=== PATIENT | female | born 2000 | race Two or more races ===

== ENCOUNTER 2023-04-10 20:58 | Emergency (ER) | payer SELFPAY ==
[2023-04-10] VITALS (22 sets, daily range): BP systolic 141–180; BP diastolic 77–116; PULSE 76–112; RESP 15–25; TEMP 36.9–38; O2SAT 94–98; BMI 33.7
--- NOTE | 2023-04-10 21:19 | ED_ITS ---
HPI - General Adult General Chief complaint: Weakness Stated complaint: WEAK/DIZZY Time Seen by Provider: 04/10/23 20:59 Source: patient Mode of arrival: walk-in Limitations: no limitations History of Present Illness HPI narrative: This otherwise healthy 23-year-old female presents for evaluation of fevers, chills, diffuse body aches, headache, nausea and diarrhea. The symptoms started yesterday. She has had 2 recent covid exposures. She denies any chest pain or shortness of breath. She has no sore throat at this time. She used to Tylenol prior to arrival. She is vaccinated against COVID 19. She states she has not had any vomiting but has been nauseated all day and has had diarrhea all day. She has no specific abdominal pain. She states she feels dizzy when she changes positions but has not passed out. She denies any smoking. She denies the possibility of . She has no urinary symptoms or flank pain. Related Data Home Medications Medication Instructions Recorded Confirmed emtricitabine 200 mg-tenofovir 1 tab PO DAILY 04/10/23 04/10/23 disoproxil fumarate 300 mg tablet (Truvada) Allergies Allergy/AdvReac Type Severity Reaction Status Date / Time No Known Drug Allergies Allergy Verified 04/10/23 21:05 Review of Systems ROS Status of ROS 10 or more systems reviewed and unremark able except as noted in history and below [facility] Social History Smoking status: Never smoker Exam Narrative Exam Narrative: Nurses note and vital signs reviewed; Patient is febrile, tachycardic, blood pressure is elevated at 180/108, she is not hypoxic with pulse ox of 98 percent on room air General: Alert, nontoxic female resting currently on the stretcher, no respiratory distress, no active vomiting Skin: Warm, dry, no pallor noted. There is no rash noted. Head: Normocephalic, atraumatic Eye: Normal conjunctiva, no drainage, EOMI. PERRL, No photophobia Neck: Supple, no meningeal signs Ears, Nose, Mouth, and Throat: oral mucosa is dry, No posterior pharyngeal eryth bree or exudate. No peritonsillar abscess, no swelling of the tongue, uvula or pharyngeal soft tissues Cardiovascular: Regular Rate and [id number], No murmurs rubs or gallops, pulses are brisk and equal bilaterally Respiratory: Patient is in no distress, no accessory muscle use, lungs are clear to auscultation, no wheezing, rales or rhonchi Back: non-tender, no CVA tenderness bilaterally to percussion. GI: Normal bowel sounds, no tenderness to palpation, no masses appreciated. No rebound, guarding, or rigidity noted. Musculoskeletal: The patient has no evidence of calf tenderness, no pitting edema, symmetrical pulses noted bilaterally Neurological: A&O x4, normal speech Psychiatric: Cooperative Constitutional Vital Signs, click to edit/add: Last Vital Signs Temp 98.5 F 04/10/23 23:11 Pulse 88 04/10/23 23:00 Resp 15 04/10/23 23:00 BP 153/77 H 04/10/23 23:00 Pulse Ox 95 04/10/23 23:00 O2 Del Method Room Air 04/10/23 21:02 Course Vital Signs Vital signs: Vital Signs Temperature 100.4 F 04/10/23 21:02 Pulse Rate 112 H 04/10/23 21:02 Respiratory Rate 16 04/10/23 21:02 Blood Pressure 180/108 H 04/10/23 21:02 Pulse Oximetry 98 04/10/23 21:02 Oxygen Delivery Method Room Air 04/10/23 21:02 Temperature 98.5 F 04/10/23 23:11 Pulse Rate 88 04/10/23 23:00 Respiratory Rate 15 04/10/23 23:00 Blood Pressure 153/77 H 04/10/23 23:00 Pulse Oximetry 95 04/10/23 23:00 Oxygen Delivery Method Room Air 04/10/23 21:02 Medical Decision Making [facility] Narrative Medical decision making narrative: 23-year-old female with a history of HIV the presents for evaluation of fevers, chills, body aches with nausea and diarrhea for the past 2 days. She has taken Tylenol prior to arrival and was mildly febrile upon arrival. An IV was placed and she was given IV fluids, Zofran and Toradol. EKG done upon arrival is a sinus tachycardia at 104 bpm with normal axis and no acute changes. She was negative for COVID 19 and influenza. Urinalysis was negative for infection. Her white blood count was mildly elevated at 13. Hemoglobin is stable. Urine is negative. She was not . He did have elevated ALT and AST and her total bilirubin was 3.5. She does not have any right upper quadrant tenderness but in light of her history of HIV and fever with elevated bilirubin I ordered a CT scan with IV contrast. CT scan shows hepatomegaly but is otherwise normal. Chest x-ray was also negative for acute findings. Respiratory panel was negative. On reevaluation the patient is feeling better and tolerating clear liquids. Her vital signs have been stable. She feels comfortable being discharged home. She was given a copy of her CT scan and chest x-ray results to share with her family physician. I encouraged her to follow up closely due to the elevated bilirubin on her comprehensive metabolic profile. She will be discharged home with a prescription for Zofran and Bentyl with recommendation for clear liquid diet, slow advancement to bland diet prior to resuming normal diet. Lab Data Labs: Lab Results 04/10/23 04/10/23 04/10/23 Range/Units 21:10 21:30 21:30 WBC 13.0 H (4.0-11.0) 10^3/uL RBC 4.61 (4.20-5.40) 10^6/uL Hgb 14.0 (12.0-16.0) g/dL Hct 41.5 (36.0-48.0) % MCV 90.0 (81.0-99.0) fL MCH 30.4 (26.7-34.0) pg MCHC 33.7 (29.9-35.2) g/dL RDW 11.8 (11.0-15.0) % Plt Count 304 (150-450) 10^3/uL MPV 10.2 (9.5-13.5) fL Neut % (Auto) 81.4 H (43.0-75.0) % Lymph % (Auto) 11.8 L (20.5-60.0) % Green % (Auto) 5.9 (1.7-12.0) % Eos % (Auto) 0.4 L (0.9-7.0) % Baso % (Auto) 0.1 L (0.2-2.0) % Neut # (Auto) 10.6 H (1.4-6.5) 10^3/uL Lymph # (Auto) 1.5 (1.2-3.8) 10^3/uL Green # (Auto) 0.8 (0.3-0.8) 10^3/uL Eos # (Auto) 0.1 (0.0-0.7) 10^3/uL Baso # (Auto) 0.0 (0.0-0.1) 10^3/uL Abs Immat Gran (auto) 0.05 H (0.00-0.03) 10^3/uL Imm/Tot Granulo (auto) 0.4 (0.0-0.5) % Sodium 135 L (136-145) mmol/L Potassium 3.6 (3.5-5.1) mmol/L Chloride 99 (98-107) mmol/L Carbon Dioxide 23.8 (21.0-32.0) mmol/L Anion Gap 15.8 BUN 8.0 (7.0-18.0) mg/dL Creatinine 0.52 L (0.55-1.02) mg/dL Est GFR ( Amer) >60 (>=60) Est GFR (Non-Af Amer) >60 (>=60) BUN/Creatinine Ratio 15.4 Glucose 114 H (74-106) mg/dL Calcium 8.9 (8.5-10.1) mg/dL Total Bilirubin 3.5 H (0.2-1.0) mg/dL AST 74 H (15-37) U/L ALT 121 H (14-59) U/L Alkaline Phosphatase 68 (46-116) U/L Total Protein 7.8 (6.4-8.2) g/dL Albumin 4.0 (3.4-5.0) g/dL Globulin 3.8 g/dL Albumin/Globulin Ratio 1.1 Urine Color (YELLOW) Urine Clarity (CLEAR) Urine pH (5.0-9.0) Ur Specific [place] (1.005-1.025) Urine Protein (NEG/TRACE) mg/dL Urine Glucose (UA) (NEGATIVE) mg/dL Urine Ketones (NEGATIVE) mg/dL Urine Occult Blood (NEGATIVE) Urine Nitrite (NEGATIVE) Urine Bilirubin (NEGATIVE) Urine Urobilinogen (0.2-1.0) EU/dL Ur Leukocyte Esterase (NEGATIVE) Urine RBC (0-2) #/HPF Urine WBC (NONE SEEN) #/HPF Ur Squamous Epith Cells (NONE/RARE) #/LPF Urine Crystals (None Seen) #/HPF Urine Bacteria (NONE SEEN) #/HPF Urine Casts (NONE SEEN) #/LPF Urine Mucus (NONE SEEN) Urine HCG, Qual (NEGATIVE) Adenovirus (PCR) Not detected (NOT DETECTE) C. pneumoniae DNA (PCR) Not detected (NOT DETECTE) Coronavirus Type OC43 Not detected (NOT DETECTE) Coronavirus Type HKU1 Not detected (NOT DETECTE) Coronavirus Type 229E Not detected (NOT DETECTE) SARS-CoV-2 (PCR) Negative Not detected (NEGATIVE) Coronavirus Type NL63 Not detected (NOT DETECTE) Human Metapneumovir PCR Not detected (NOT DETECTE) Influenza Type A Ag Negative Influenza Type B Ag Negative M. pneumoniae (PCR) Not detected (NOT DETECTE) Parainfluenza PCR Not detected (NOT DETECTE) Parainfluenza 2 (PCR) Not detected (NOT DETECTE) Parainfluenza 3 (PCR) Not detected (NOT DETECTE) Parainfluenza 4 (PCR) Not detected (NOT DETECTE) RSV (RT-PCR) Not detected (NOT DETECTE) Entero/Rhino (PCR) Not detected (NOT DETECTE) Bordetella pertussis (PCR) Not detected (NOT DETECTE) B parapertussis DNA PCR Not detected (NOT DETECTE) Influenza Type A (PCR) Not detected (NOT DETECTE) Influenza Type B (PCR) Not detected (NOT DETECTE) 04/10/23 Range/Units 21:40 WBC (4.0-11.0) 10^3/uL RBC (4.20-5.40) 10^6/uL Hgb (12.0-16.0) g/dL Hct (36.0-48.0) % MCV (81.0-99.0) fL MCH (26.7-34.0) pg MCHC (29.9-35.2) g/dL RDW (11.0-15.0) % Plt Count (150-450) 10^3/uL MPV (9.5-13.5) fL Neut % (Auto) (43.0-75.0) % Lymph % (Auto) (20.5-60.0) % Green % (Auto) (1.7-12.0) % Eos % (Auto) (0.9-7.0) % Baso % (Auto) (0.2-2.0) % Neut # (Auto) (1.4-6.5) 10^3/uL Lymph # (Auto) (1.2-3.8) 10^3/uL Green # (Auto) (0.3-0.8) 10^3/uL Eos # (Auto) (0.0-0.7) 10^3/uL Baso # (Auto) (0.0-0.1) 10^3/uL Abs Immat Gran (auto) (0.00-0.03) 10^3/uL Imm/Tot Granulo (auto) (0.0-0.5) % Sodium (136-145) mmol/L Potassium (3.5-5.1) mmol/L Chloride (98-107) mmol/L Carbon Dioxide (21.0-32.0) mmol/L Anion Gap BUN (7.0-18.0) mg/dL Creatinine (0.55-1.02) mg/dL Est GFR ( Amer) (>=60) Est GFR (Non-Af Amer) (>=60) BUN/Creatinine Ratio Glucose (74-106) mg/dL Calcium (8.5-10.1) mg/dL Total Bilirubin (0.2-1.0) mg/dL AST (15-37) U/L ALT (14-59) U/L Alkaline Phosphatase (46-116) U/L Total Protein (6.4-8.2) g/dL Albumin (3.4-5.0) g/dL Globulin g/dL Albumin/Globulin Ratio Urine Color Lt. yellow (YELLOW) Urine Clarity Clear (CLEAR) Urine pH 6.5 (5.0-9.0) Ur Specific [place] <=1.005 A (1.005-1.025) Urine Protein Negative (NEG/TRACE) mg/dL Urine Glucose (UA) Negative (NEGATIVE) mg/dL Urine Ketones Negative (NEGATIVE) mg/dL Urine Occult Blood Small A (NEGATIVE) Urine Nitrite Negative (NEGATIVE) Urine Bilirubin Negative (NEGATIVE) Urine Urobilinogen 1.0 (0.2-1.0) EU/dL Ur Leukocyte Esterase Negative (NEGATIVE) Urine RBC 5-10 A (0-2) #/HPF Urine WBC 0-2 A (NONE SEEN) #/HPF Ur Squamous Epith Cells Moderate A (NONE/RARE) #/LPF Urine Crystals None seen (None Seen) #/HPF Urine Bacteria Trace A (NONE SEEN) #/HPF Urine Casts None seen (NONE SEEN) #/LPF Urine Mucus None seen (NONE SEEN) Urine HCG, Qual Negative (NEGATIVE) Adenovirus (PCR) (NOT DETECTE) C. pneumoniae DNA (PCR) (NOT DETECTE) Coronavirus Type OC43 (NOT DETECTE) Coronavirus Type HKU1 (NOT DETECTE) Coronavirus Type 229E (NOT DETECTE) SARS-CoV-2 (PCR) (NEGATIVE) Coronavirus Type NL63 (NOT DETECTE) Human Metapneumovir PCR (NOT DETECTE) Influenza Type A Ag Influenza Type B Ag M. pneumoniae (PCR) (NOT DETECTE) Parainfluenza PCR (NOT DETECTE) Parainfluenza 2 (PCR) (NOT DETECTE) Parainfluenza 3 (PCR) (NOT DETECTE) Parainfluenza 4 (PCR) (NOT DETECTE) RSV (RT-PCR) (NOT DETECTE) Entero/Rhino (PCR) (NOT DETECTE) Bordetella pertussis (PCR) (NOT DETECTE) B parapertussis DNA PCR (NOT DETECTE) Influenza Type A (PCR) (NOT DETECTE) Influenza Type B (PCR) (NOT DETECTE) ECG Data Attestation: I personally reviewed and interpreted this ECG as follows: (Sinus tachycardia at 104 beats for minute, normal axis, normal intervals, no acute ST segment elevation or T-wave inversion) Discharge Plan Discharge Chief Complaint: Weakness Clinical Impression: Acute viral syndrome, Elevated liver function tests, Febrile illness, acute Patient Disposition: Home, Self-Care Time of Disposition Decision: 23:52 Condition: Good Prescriptions / Home Meds: No Action emtricitabine-tenofovir (TDF) [Truvada] 200-300 mg tablet 1 tab PO DAILY Instructions: Fever in Adults (ED), Viral Syndrome (ED) Stand Alone Forms: Portal Instructions Referrals: Physician,Non-Staff, MD [Primary Care Provider] - 1 week
[2023-04-10 21:28] LABS: Basophils Percent Auto 0.1 % (0.2-2.0); Eosinophils Absolute Auto 0.1 10^3/uL (0.0-0.7); Eosinophils Percent Auto 0.4 % (0.9-7.0); Hematocrit 41.5 % (36.0-48.0); Immature Granulocytes Abs Auto 0.05 10^3/uL (0.00-0.03); Immature Granulocytes Pct Auto 0.4 % (0.0-0.5); Lymphocytes Absolute Auto 1.5 10^3/uL (1.2-3.8); Lymphocytes Percent Auto 11.8 % (20.5-60.0); Mean Corpuscular HGB Conc 33.7 g/dL (29.9-35.2); Mean Corpuscular Hemoglobin 30.4 pg (26.7-34.0); Mean Platelet Volume 10.2 fL (9.5-13.5); Monocytes Absolute Auto 0.8 10^3/uL (0.3-0.8); Monocytes Percent Auto 5.9 % (1.7-12.0); Neutrophils Absolute Auto 10.6 10^3/uL (1.4-6.5); Neutrophils Percent Auto 81.4 % (43.0-75.0); Platelet Count 304 10^3/uL (150-450); Red Blood Count 4.61 10^6/uL (4.20-5.40); Red Cell Distribution Width 11.8 % (11.0-15.0)
[2023-04-10] MEDS: KETOROLAC TROMETHAMINE 30 MG/ML VIAL IVP (21:28)
[2023-04-10] MEDS: ONDANSETRON PF 4 MG/2 ML VIAL IV (21:28)
[2023-04-10] MEDS: 0.9 % SODIUM CHLORIDE 1,000 ML 1000 ML IV (21:28)
[2023-04-10 21:42] LABS: Alanine Aminotransferase 121 U/L (14-59); Albumin Globulin Ratio 1.1; Alkaline Phosphatase 68 U/L (46-116); Anion Gap 15.8; Aspartate Amino Transferase 74 U/L (15-37); BUN Creatinine Ratio 15.4; Bilirubin Total 3.5 mg/dL (0.2-1.0); Calcium 8.9 mg/dL (8.5-10.1); Carbon Dioxide 23.8 mmol/L (21.0-32.0); Chloride 99 mmol/L (98-107); Estimated GFR (African America >60 (>=60); Estimated GFR (Non-African Ame >60 (>=60); Globulin 3.8 g/dL; Glucose 114 mg/dL (74-106); Potassium 3.6 mmol/L (3.5-5.1); Sodium 135 mmol/L (136-145); Total Protein 7.8 g/dL (6.4-8.2)
[2023-04-10 21:49] LABS: Influenza Virus A Antigen Negative; Influenza Virus B Antigen Negative
[2023-04-10 21:50] LABS: Bilirubin Urine NEGATIVE (NEGATIVE); Blood Urine SMALL (NEGATIVE); Clarity Urine CLEAR (CLEAR); Color Urine LT. YELLOW (YELLOW); Glucose Urine UA NEGATIVE (NEGATIVE); Ketones Urine NEGATIVE (NEGATIVE); Leukocyte Esterase Urine NEGATIVE (NEGATIVE); Nitrite Urine NEGATIVE (NEGATIVE); Protein Urine NEGATIVE (NEG/TRACE); Specific Gravity Urine <=1.005 (1.005-1.025); pH Urine 6.5 (5.0-9.0)
[2023-04-10 21:50] LABS: Internal Control Within Normal Limits; SARS-CoV-2 Ag NEGATIVE (NEGATIVE)
[2023-04-10 21:52] LABS: HCG Qualitative Urine* NEGATIVE (NEGATIVE)
[2023-04-10 21:59] LABS: Bacteria Urine TRACE #/HPF (NONE SEEN); Cast Seen? NONE SEEN #/LPF (NONE SEEN); Crystals Seen? None Seen #/HPF (None Seen); Mucus Urine NONE SEEN (NONE SEEN); Squamous Epithelial Cell Urine MODERATE #/LPF (NONE/RARE); WBC Urine 0-2 #/HPF (NONE SEEN)
--- NOTE | 2023-04-10 22:07 | XR_ITS ---
The [address] [address] Patient Name: MONO GARIBAY MRN: [id number] date: 2000 Sex: F Assigned Patient Location: ER Current Patient Location: ER Accession/Order Number: [id number] Exam Date: 04/10/2023 22:40 Report Date: 04/10/2023 23:06 At the request of: KVNG MARKER Procedure: XR chest 2V EXAM: XR chest 2V HISTORY: fever COMPARISON: None. TECHNIQUE: 2 views of the chest were obtained. FINDINGS: The cardiac silhouette is normal in size. The lungs are clear. There is no significant pneumothorax or pleural effusion. No acute osseous abnormality is seen. XR/XR chest 2V IMPRESSION: 1. No acute cardiopulmonary abnormality. Electronically authenticated by: Darci NOGUEIRA Date: 04/10/2023 23:06
--- NOTE | 2023-04-10 22:16 | CT_ITS ---
[address] [address] Patient Name: OMNO GARIBAY MRN: [id number] date: 2000 Sex: F Assigned Patient Location: ER Current Patient Location: ER Accession/Order Number: [id number] Exam Date: 04/10/2023 22:40 Report Date: 04/10/2023 23:11 At the request of: KVNG MARKER Procedure: CT abdomen pelvis w con EXAM: CT abdomen pelvis w con HISTORY: abd pain, diarrhea, elevated bilirubin COMPARISON: None. TECHNIQUE: Axial CT images through the abdomen and pelvis were obtained after the intravenous administration of 100 mL Omnipaque 300 contrast. Coronal and sagittal reformats were obtained. Dose reduction techniques were achieved by using automated exposure control and/or adjustment of mA and/or kV according to patient size and/or use of iterative reconstruction technique. FINDINGS: The visualized portions of the lung bases are clear. Abdomen: The liver and spleen enhance homogeneously without focal lesion. There is no intra or extrahepatic biliary duct dilatation. The gallbladder is unremarkable. There is hepatic steatosis. The liver is enlarged measuring up to 20.2 cm at the right midclavicular line. The pancreas, adrenal glands, kidneys, and bowel loops, including the appendix, are unremarkable. There is no mesenteric or retroperitoneal lymphadenopathy. Pelvis: The bladder demonstrates wall thickening. The rectum is unremarkable. There is no iliac or inguinal lymphadenopathy. The uterus is present. The left ovary appears within normal limits by CT. There is a suspected right ovarian follicle measuring up to 1.9 x 1.9 cm (series 3, image 118). Bone windows show no aggressive osseous lesions. There is nonspecific sclerosis about the sacroiliac joints. CT/CT abdomen pelvis w con IMPRESSION: 1. No specific etiology identified to explain the patient's abdominal pain. 2. Hepatomegaly and hepatic steatosis. 3. Normal appendix. 4. Urinary bladder wall thickening. Please correlate with urinalysis for infection. 5. Suspected right ovarian follicle measuring up to 1.9 cm. Electronically authenticated by: Darci NOGUEIRA Date: 04/10/2023 23:11
[2023-04-10 22:52] LABS: Adenovirus NOT DETECTED (NOT DETECTE); Bordetella parapertussis NOT DETECTED (NOT DETECTE); Coronavirus 229E NOT DETECTED (NOT DETECTE); Coronavirus HKU1 NOT DETECTED (NOT DETECTE); Coronavirus NL63 NOT DETECTED (NOT DETECTE); Coronavirus OC43 NOT DETECTED (NOT DETECTE); Human Metapneumovirus NOT DETECTED (NOT DETECTE); Human Rhinovirus/Enterovirus NOT DETECTED (NOT DETECTE); Influenza A NOT DETECTED (NOT DETECTE); Influenza B NOT DETECTED (NOT DETECTE); Mycoplasma pneumoniae NOT DETECTED (NOT DETECTE); Parainfluenza Virus 1 NOT DETECTED (NOT DETECTE); Parainfluenza Virus 2 NOT DETECTED (NOT DETECTE); Parainfluenza Virus 3 NOT DETECTED (NOT DETECTE); Parainfluenza Virus 4 NOT DETECTED (NOT DETECTE); Respiratory Syncytial Virus NOT DETECTED (NOT DETECTE); SARS-CoV-2 NOT DETECTED (NOT DETECTE)
--- NOTE | 2023-04-10 23:58 | ECG_ITS ---
The [facility] Test Date: 2023-04-10 Pat Name: MONO GARIBAY Department: Room: - Gender: Female Health And Safety Consultant: : 2000 Requested By: [id number] Order Number: [id number] Reading MD: BEV MCDERMOTT Measurements Intervals [place] Rate: 104 P: 40 CO: 124 QRS: 68 QRSD: 88 T: 37 QT: 354 QTc: 414 Interpretive Statements 1120 Sinus tachycardia 9140 abnormal rhythm ECG No previous ECG available for comparison Electronically Signed On 04-11-2023 7:14:12 EST by BEV MCDERMOTT
[2023-04-11 15:09] LABS: SARS-CoV-2 NAA NOT DETECTED (NOT DETECTE)
== END 2023-04-11 00:02 | disposition home or self-care (01) ==
PROVIDERS: Emergency Provider Emergency Medicine
DX: R50.9 Fever, unspecified (principal); B34.9 Viral infection, unspecified; R79.89 Other specified abnormal findings of blood chemistry; R42 Dizziness and giddiness; Z21 Asymptomatic human immunodeficiency virus [HIV] infection status; R16.0 Hepatomegaly, not elsewhere classified
CPT/HCPCS: 0202U; 36415; 71046; 74177; 80053; 81001; 84703; 85025; 87635; 87804; 87811; 93005; 96361; 96374; 96375; 99285; Q9967

== ENCOUNTER 2023-12-29 21:34 | Emergency (ER) | payer OTHER, SELFPAY ==
[2023-12-29 21:41] VITALS: BP 170/110; PULSE 81; TEMP 36.8; O2SAT 97; BMI 38.4
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
--- NOTE | 2023-12-29 22:11 | ED.GENADUL1 ---
HPI HPI - General Adult General Stated complaint: Eye Pain Time Seen by Provider: 12/29/23 21:42 Source: patient Mode of arrival: walk-in History of Present Illness HPI narrative: 23-year-old female to the emergency department chief complaint of small red spot on her eye. She reports yesterday noticed that she had a small subconjunctival hemorrhage. No vision changes. No injury. No eye pain, foreign body sensation. She reports that she believes it started after she sneezed. No blood thinner use. Otherwise at her baseline health. Related Data Home Medications ?Medication ?Instructions ?Recorded ?Confirmed emtricitabine 200 mg-tenofovir 1 tab PO DAILY 04/10/23 12/29/23 disoproxil fumarate 300 mg tablet (Truvada) Allergies Allergy/AdvReac Type Severity Reaction Status Date / Time No Known Drug Allergies Allergy Verified 12/29/23 21:40 Opioid HPI Opioid Management Most Recent Opioid Data: No Data to Display Review of Systems ROS Status of ROS 10 or more systems reviewed and unremarkable except as noted in history and below PFSH PFS Social History Smoking status: Never smoker Exam Narrative Exam Narrative: VITALS: I have reviewed the triage vital signs. GENERAL: Well developed, well appearing adult in no acute distress. NEURO: Alert and oriented. Moves all extremities. Face is symmetric and expressive. EYES: PERRL. No scleral icterus or conjunctival injection. No discharge. Small subconjunctival hemorrhage of the left eye at 7:00. HENT: Normocephalic, atraumatic. Hearing is grossly intact. Nares grossly patent and without discharge. Mucous membranes moist. NECK: No JVD. Patient moves neck without restriction. EXTREMITIES: Symmetric muscle bulk. No joint swelling. No clubbing, cyanosis, or deformity. SKIN: Warm and dry. Normal turgor. No rash or lesions appreciated. PSYCH: Mood, affect, and interaction is appropriate to the setting. Constitutional Vital Signs, click to edit/add: Last Vital Signs Temp 98.3 F 12/29/23 21:41 Pulse 81 12/29/23 21:41 Resp 16 12/29/23 21:41 BP 170/110 H 12/29/23 21:41 Pulse Ox 97 12/29/23 21:41 O2 Del Method Room Air 12/29/23 21:41 Course Vital Signs Vital signs: Vital Signs Temperature 98.3 F 12/29/23 21:41 Pulse Rate 81 12/29/23 21:41 Respiratory Rate 16 12/29/23 21:41 Blood Pressure 170/110 H 12/29/23 21:41 Pulse Oximetry 97 12/29/23 21:41 Oxygen Delivery Method Room Air 12/29/23 21:41 Temperature 98.3 F 12/29/23 21:41 Pulse Rate 81 12/29/23 21:41 Respiratory Rate 16 12/29/23 21:41 Blood Pressure 170/110 H 12/29/23 21:41 Pulse Oximetry 97 12/29/23 21:41 Oxygen Delivery Method Room Air 12/29/23 21:41 Medical Decision Making MDM Narrative Medical decision making narrative: 23-year-old female asymptomatic with subconjunctival hemorrhage. Hypertensive, otherwise stable vitals. Education given on subconjunctival hemorrhage. Return precautions were discussed. We also discussed her elevated blood pressure. She reports she has a history of this and was supposed to follow-up with her PCP but failed to do so. I recommended daily blood pressure log, following up with her PCP in the next week to ensure that her subconjunctival hemorrhages resolving and on her blood pressure. She agrees with this plan. Return precautions were discussed. All questions were answered. The patient was discharged home. Discharge Plan Discharge Stand Alone Forms: Work/School Release, Portal Instructions Clinical Impression: Hypertension, Conjunctival hemorrhage Patient Disposition: Home, Self-Care Time of Disposition Decision: 22:08 Condition: Good Mode of Transportation: Private Vehicle Prescriptions / Home Meds: No Action emtricitabine-tenofovir (TDF) [Truvada] 200-300 mg tablet 1 tab PO DAILY Print Language: Gabonese Instructions: Chronic Hypertension (ED), Eye Pain (ED) Additional Instructions: Call the office of your primary care doctor to arrange for follow-up within the above-stated timeframe. Your ED visit was focused on your acute issue and does not replace primary care. You should review your labs, imaging, and diagnoses from this ED visit with your primary care physician. There may be non-emergent/ incidental findings that need further evaluation. You should review your vital signs including blood pressure with your PCP. If you were prescribed medications you should discuss possible side-effects and drug interactions with your pharmacist. Call 911 or go to the nearest Emergency Department if you develop any new or worsening symptoms. Keep daily blood pressure log. Follow-up with your doctor in the next week for evaluation of your blood pressure. Subconjunctival hemorrhage will resolve over the next week to 2 weeks. Return to the ED if it begins affecting her vision. Referrals: [facility] [Primary Care Provider] - 1 week
== END 2023-12-29 22:32 | disposition home or self-care (01) ==
PROVIDERS: Emergency Provider Student in an Organized Health Care Education/Training Program
DX: H11.32 Conjunctival hemorrhage, left eye (principal); I10 Essential (primary) hypertension
CPT/HCPCS: 99281

== ENCOUNTER 2025-04-15 18:25 | Emergency (ER) | payer SELFPAY ==
[2025-04-15 18:31] VITALS: BP 176/93; PULSE 82; TEMP 37.2; O2SAT 97; BMI 39.3
--- NOTE | 2025-04-15 18:55 | ECG_ITS ---
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
--- NOTE | 2025-04-15 18:55 | XR_ITS ---
[facility] [place] [id number] Patient Name: MONO GARIBAY MRN: [id number] date: 2000 Sex: F Assigned Patient Location: ER Current Patient Location: ED.MAIN Accession/Order Number: [id number] Exam Date: 04/15/2025 19:02 Report Date: 04/15/2025 19:25 At the request of: DELROY WHEELER Procedure: XR chest 2V PA AND LATERAL CHEST: CLINICAL HISTORY: CP COMPARISON: 04/10/2023 FINDINGS: Unremarkable cardiomediastinal silhouette. Lungs are clear. No effusion or pneumothorax. XR/XR chest 2V IMPRESSION: NO ACUTE CARDIOPULMONARY ABNORMALITY. Impression dictated by: Abraham Mcdaniel M.D. 04/15/2025 7:25 PM Dictation Location: [place] [address] Electronically authenticated by: [id number] Y Date: 04/15/2025 19:25
--- NOTE | 2025-04-15 18:56 | ED.GENADUL1 ---
HPI HPI - General Adult General Chief complaint: Chest Pain Stated complaint: CHEST PAIN Time Seen by Provider: 04/15/25 18:52 Source: patient Mode of arrival: walk-in History of Present Illness HPI narrative: 25 year old female presents to the ED for pain across her chest. Onset was approx one week ago. States she had a cough, URI symptoms last week. Denies fever, chills, dizziness, SOB. She saw her pcp today and was placed on medication for hypertension and DM. Related Data Allergies Allergy/AdvReac Type Severity Reaction Status Date / Time No Known Drug Allergies Allergy Verified 04/15/25 18:31 Opioid HPI Opioid Management Most Recent Opioid Data: Last Pain Scale 7 Today, 18:31 Review of Systems ROS Constitutional Denies: fever or chills Ears, nose, mouth, and throat Denies: throat pain Cardiovascular Reports: chest pain Respiratory Reports: cough; Denies: shortness of breath Gastrointestinal Denies: abdominal pain, nausea, vomiting or diarrhea Musculoskeletal Denies: back pain Integumentary/Breast Denies: rash Neurological Denies: headache or dizziness PFSH PFSH Social History Smoking status: Never smoker Little interest or pleasure in doing things: not at all Feeling down, depressed, or hopeless: not at all Exam Constitutional Vital Signs, click to edit/add: Last Vital Signs Temp 98.9 F 04/15/25 18:31 Pulse 79 04/15/25 19:40 Resp 25 H 04/15/25 19:40 BP 133/98 H 04/15/25 19:30 Pulse Ox 97 04/15/25 18:31 O2 Del Method Room Air 04/15/25 18:31 Common normals: no apparent distress and oriented x3 General appearance: cooperative Eye Common normals: conjunctivae normal and no scleral icterus Neck & C-Spine Common normals: supple Chest Chest: symmetrical chest wall rise; no tenderness Respiratory Common normals: normal respiratory effort and clear to auscultation bilaterally Effort & inspection: able to speak in complete sentences and symmetric chest movement Cardio Common normals: regular rate and regular rhythm Neuro Common normals: oriented x3 and moves all extremities Sensorium/orientation: awake Course Vital Signs Vital signs: Vital Signs Temperature 98.9 F 04/15/25 18:31 Pulse Rate 82 04/15/25 18:31 Respiratory Rate 18 04/15/25 18:31 Blood Pressure 176/93 H 12/10/25 18:31 Pulse Oximetry 97 04/15/25 18:31 Oxygen Delivery Method Room Air 04/15/25 18:31 Temperature 98.9 F 04/15/25 18:31 Pulse Rate 79 04/15/25 19:40 Respiratory Rate 25 H 04/15/25 19:40 Blood Pressure 133/98 H 04/15/25 19:30 Pulse Oximetry 97 04/15/25 18:31 Oxygen Delivery Method Room Air 04/15/25 18:31 Medical Decision Making MDM Narrative Medical decision making narrative: EKG was unremarkable. Chest x-ray was negative for acute findings. Findings were discussed. She was given a dose of Norvasc here in the ED. She has prescriptions for BP medication and DM medication at her pharmacy that she is going to pickup tomorrow. Follow up with pcp for a recheck, further evaluation and treatment. Return to the ED for worsening symptoms. Medical Records Medical records reviewed: Yes I reviewed the patient's medical records Lab Data Lab results reviewed: Yes I reviewed the patient's lab results Labs: Lab Results 04/15/25 Range/Units 18:50 Urine HCG, Qual Negative (NEGATIVE) Imaging Data Chest x-ray: Attestation: I have reviewed the pertinent imaging results. Radiologist's impression: ITS Impressions Chest X-Ray 04/15/25 18:55 IMPRESSION: NO ACUTE CARDIOPULMONARY ABNORMALITY. Impression dictated by: Abraham Mcdaniel M.D. 04/15/2025 7:25 PM Dictation Location: [place] [address] Electronically authenticated by: [id number] Y Date: 04/15/2025 19:25 ECG Data Attestation: ?I have reviewed the pertinent ECG results. (EKG was reviewed by the ED attending. It showed sinus rhythm at a rate of 79. No acute ST segment changes.) Interpretation: Measurements Intervals [place] Rate: 79 P: 36 DE: 132 QRS: 64 QRSD: 88 T: 50 QT: 378 QTc: 413 Interpretive Statements 1100 Sinus rhythm 9110 normal ECG No previous ECG available for comparison Discharge Plan Discharge Chief Complaint: Chest Pain Clinical Impression: Atypical chest pain Patient Disposition: Home, Self-Care Time of Disposition Decision: 19:33 Condition: Good Mode of Transportation: Private Vehicle Print Language: Yakut Instructions: Chest Pain (ED), Chest Wall Pain (ED) Additional Instructions: Return to the ED for worsening symptoms. Referrals: [facility] [Physician, Unknown] - 1 week Discharge Date/Time: 04/15/25 19:47
[2025-04-15 19:10] LABS: HCG Qualitative Urine* NEGATIVE (NEGATIVE)
[2025-04-15 19:11] VITALS: PULSE 84
[2025-04-15 19:13] VITALS: BP 175/90; PULSE 82
[2025-04-15 19:20] VITALS: PULSE 78
[2025-04-15 19:30] VITALS: BP 133/98; PULSE 79
[2025-04-15 19:40] VITALS: PULSE 79
[2025-04-15] MEDS: AMLODIPINE BESYLATE 5 MG TABLET PO (19:43)
== END 2025-04-15 19:47 | disposition home or self-care (01) ==
PROVIDERS: Nurse Practitioner Family; Emergency Provider Student in an Organized Health Care Education/Training Program
DX: R07.89 Other chest pain (principal)
CPT/HCPCS: 71046; 84703; 93005; 99284